=== PATIENT | female | born 1995 | race Caucasian/White ===

== ENCOUNTER 2016-09-19 22:04 | Inpatient (IN) | payer OTHER ==
[~2016-09-19] VITALS: Ht 160 cm; Wt 87.0 kg
[~2016-09-19 22:04] MED LIST: DEPO-PROVER150 MG/ML IM; LEVEMIR100 UNIT/2 SC; LEVOTHYROXINE100 MCG PO; NOVOLOG 10100 UNITS/ SC; [UNRECOGNIZED DRUG - OTHER] MC
[2016-09-19 22:22] LABS: POINT-OF-CARE METER ID UU13113778
[2016-09-19 22:36] LABS: HEMATOCRIT 43.8 % (36.0-46.0); MCH 27.1 PG (29.0-34.0); MCHC 32.9 G/DL (30.0-36.0); MCV 82.3 FL (83-99); MEAN PLAT.VOLUME 10.2 uM^3 (9.5-12.4); PLATELET COUNT 244 K/uL (156-360); RBC DIS.WIDTH-CV 12.8 % (11.8-14.6); RBC DIS.WIDTH-SD 38.2 % (39-53); RED BLOOD COUNT 5.32 M/uL (3.80-5.20)
[2016-09-19 22:40] LABS: ADD MIUA? NO; BILIRUBIN NEGATIVE; BLOOD NEGATIVE; COLOR STRAW ((YELLOW)); GLUCOSE (STRIP) >=500; KETONES 80; LEUKOCYTES NEGATIVE; NITRITE NEGATIVE; PROTEIN (STRIP) NEGATIVE; UCUL ADDED? NO; UROBILINOGEN 0.2 MG/DL (0.2-1.0)
[2016-09-19 22:45] LABS: CHLORIDE 104 mEq/L (99-109); POTASSIUM 3.9 mEq/L (3.7-5.4); SODIUM 139 mEq/L (136-147)
[2016-09-19 22:47] LABS: GLUCOSE 343 mg/dL (70-99)
[2016-09-19 22:48] LABS: ANION GAP 16 MEQ/L (2-14)
[2016-09-19 22:50] LABS: ALKALINE PHOSPHATASE 117 IU/L (3-129)
[2016-09-19 22:51] LABS: GFR ESTIMATE (CALCULATED) > 59 mL/min/
[2016-09-19 22:52] LABS: TOTAL BILIRUBIN 0.6 mg/dL (0.0-1.0); UREA NITROGEN (BUN) 14 mg/dL (9-23)
[2016-09-19 22:54] LABS: LIPASE 2 U/L (1.0-51.0)
[2016-09-20] VITALS (10 sets, daily range): BP systolic 88–120; BP diastolic 39–86
[2016-09-20 00:36] LABS: CARBON DIOXIDE (BICARBONATE) 24.5 MEQ/L (20-31)
[2016-09-20 00:49] LABS: CHLORIDE 112 mEq/L (99-109); POTASSIUM 4.1 mEq/L (3.7-5.4); SODIUM 142 mEq/L (136-147)
[2016-09-20 00:53] LABS: ANION GAP 10 MEQ/L (2-14)
[2016-09-20 00:54] LABS: GLUCOSE 142 mg/dL (70-99)
[2016-09-20 00:55] LABS: GFR ESTIMATE (CALCULATED) > 59 mL/min/
[2016-09-20 00:56] LABS: UREA NITROGEN (BUN) 11 mg/dL (9-23)
[2016-09-20 01:07] LABS: QUANTITATIVE HCG < 4.0 MIU/ML
[2016-09-20 01:32] LABS: POINT-OF-CARE METER ID UU13113702
[2016-09-20 02:29] LABS: POINT-OF-CARE METER ID UU14174217
[2016-09-20 03:13] LABS: METH RESISTANT S AUREUS PCR NEGATIVE (NEGATIVE)
[2016-09-20 03:15] LABS: PROBE CHECK PASS; SPECIMEN PROCESSING CONTROL PASS
[2016-09-20 03:38] LABS: POINT-OF-CARE METER ID UU14174217
[2016-09-20 04:57] LABS: POINT-OF-CARE METER ID UU14174217
[2016-09-20 05:03] LABS: HEMATOCRIT 35.7 % (36.0-46.0); MCH 26.7 PG (29.0-34.0); MCHC 32.5 G/DL (30.0-36.0); MCV 82.1 FL (83-99); MEAN PLAT.VOLUME 10.5 uM^3 (9.5-12.4); PLATELET COUNT 215 K/uL (156-360); RBC DIS.WIDTH-CV 12.8 % (11.8-14.6); RBC DIS.WIDTH-SD 38.5 % (39-53); RED BLOOD COUNT 4.35 M/uL (3.80-5.20); WHITE BLOOD COUNT 9.9 K/uL (4.1-10.2)
[2016-09-20 05:11] LABS: CHLORIDE 109 mEq/L (99-109); MAGNESIUM 1.6 mg/dL (1.3-2.7); POTASSIUM 4.2 mEq/L (3.7-5.4); SODIUM 139 mEq/L (136-147)
[2016-09-20 05:13] LABS: GLUCOSE 138 mg/dL (70-99)
[2016-09-20 05:14] LABS: ANION GAP 9 MEQ/L (2-14)
[2016-09-20 05:17] LABS: GFR ESTIMATE (CALCULATED) > 59 mL/min/; UREA NITROGEN (BUN) 8 mg/dL (9-23)
[2016-09-20 08:14] LABS: CARBON DIOXIDE (BICARBONATE) 27.4 MEQ/L (20-31)
[2016-09-20 11:22] LABS: POINT-OF-CARE METER ID UU13113748
[2016-09-20 21:07] LABS: POINT-OF-CARE METER ID UU14188625
[2016-09-21 00:12] VITALS: BP 99/53
[2016-09-21 07:23] VITALS: BP 111/61
[2016-09-21 07:49] LABS: POINT-OF-CARE METER ID UU13113717
[2016-09-21 10:50] LABS: ANION GAP 8 MEQ/L (2-14); CHLORIDE 107 MEQ/L (99-109); SAMPLE HEMOLYSIS CHECK 0; SAMPLE ICTERIC CHECK 0; SAMPLE LIPEMIA CHECK 0; SODIUM 141 MEQ/L (136-147)
[2016-09-21 10:56] LABS: GFR ESTIMATE (CALCULATED) > 59 mL/min/; GLUCOSE 144 mg/dL (70-99); UREA NITROGEN (BUN) 10 mg/dL (9-23)
[2016-09-21 11:40] LABS: POINT-OF-CARE METER ID UU13113717
== END 2016-09-21 12:30 | disposition home or self-care (01) | DRG 919 ==
LOC: EME 22:04 → EDOF 09-20 00:48 → 5SOUTH 09-20 00:48 → 4WEST 09-20 01:52 → 5SOUTH 09-20 16:22
PROVIDERS: Emergency Medicine; Internal Medicine
DX: T85.694A Other mechanical complication of insulin pump, initial encounter (principal); E10.10 Type 1 diabetes mellitus with ketoacidosis without coma; D72.829 Elevated white blood cell count, unspecified; E03.9 Hypothyroidism, unspecified; E86.9 Volume depletion, unspecified; Y74.2 Prosthetic and other implants, materials and accessory general hospital and personal-use devices associated with adverse incidents; Z79.4 Long term (current) use of insulin; E11.65 Type 2 diabetes mellitus with hyperglycemia; R00.0 Tachycardia, unspecified
CPT/HCPCS: 80048; 80048 91; 80053; 81003; 82010; 82803; 82948; 83605; 83690; 83735; 84100; 84702; 85027; 87641; J1650; J1815; J2405; J3475; J7030; J7050; J7120

== ENCOUNTER 2017-02-01 01:01 | Inpatient (IN) | payer OTHER ==
[2017-02-01] VITALS (16 sets, daily range): BP systolic 93–135; BP diastolic 60–86
[~2017-02-01] VITALS: Ht 160 cm; Wt 81.6 kg
[2017-02-01 01:44] LABS: HEMATOCRIT 46.2 % (36.0-46.0); MCH 26.8 PG (29.0-34.0); MCHC 32.3 G/DL (30.0-36.0); MCV 82.9 FL (83-99); MEAN PLAT.VOLUME 10.7 uM^3 (9.5-12.4); PLATELET COUNT 248 K/uL (156-360); RBC DIS.WIDTH-CV 13.1 % (11.8-14.6); RBC DIS.WIDTH-SD 39.3 % (39-53); RED BLOOD COUNT 5.57 M/uL (3.80-5.20); WHITE BLOOD COUNT 10.7 K/uL (4.1-10.2)
[2017-02-01 01:54] LABS: CHLORIDE 101 mEq/L (99-109); POTASSIUM 4.3 mEq/L (3.7-5.4); SODIUM 133 mEq/L (136-147)
[2017-02-01 01:57] LABS: MAGNESIUM 1.9 mg/dL (1.3-2.7)
[2017-02-01 01:58] LABS: ANION GAP 21 MEQ/L (2-14); TOTAL BILIRUBIN 0.5 mg/dL (0.0-1.0)
[2017-02-01 01:59] LABS: GLUCOSE 508 mg/dL (70-99)
[2017-02-01 02:00] LABS: ALKALINE PHOSPHATASE 139 IU/L (3-129); GFR ESTIMATE (CALCULATED) > 59 mL/min/
[2017-02-01 02:01] LABS: UREA NITROGEN (BUN) 19 mg/dL (9-23)
[2017-02-01 02:04] LABS: LIPASE 4 U/L (1.0-51.0)
[2017-02-01 02:04] LABS: ADD MIUA? NO; BILIRUBIN NEGATIVE; BLOOD NEGATIVE; COLOR STRAW ((YELLOW)); GLUCOSE (STRIP) >=500; KETONES 80; LEUKOCYTES NEGATIVE; NITRITE NEGATIVE; PROTEIN (STRIP) NEGATIVE; SPECIFIC GRAVITY 1.028 (1.000-1.030); UCUL ADDED? NO; UROBILINOGEN 0.2 MG/DL (0.2-1.0)
[2017-02-01 02:12] LABS: QUANTITATIVE HCG < 4.0 MIU/ML
[2017-02-01 03:00] LABS: BASOPHIL COUNT 0.1 K/uL (0-0.1); EOSINOPHIL (%) 0.2 % (0-5); IMMATURE GRANULOCYTE (%) 0.8 % (0.0-0.7); IMMATURE GRANULOCYTE COUNT 0.1 K/uL; INSTRUMENT ABS NEUTROPHIL CT 8.8 K/uL; LYMPHOCYTE COUNT 1.5 K/uL (1.0-2.8); MONOCYTE COUNT 0.3 K/uL (0-0.8); NEUTROPHIL COUNT 8.8 K/uL (1.8-6.4)
[2017-02-01 03:14] LABS: POINT-OF-CARE METER ID UU13113747
[2017-02-01 03:48] LABS: POINT-OF-CARE METER ID UU14208751
[2017-02-01 04:09] LABS: POINT-OF-CARE METER ID UU14208751
[2017-02-01 04:36] LABS: POINT-OF-CARE METER ID UU14208751
[2017-02-01 04:54] LABS: METH RESISTANT S AUREUS PCR NEGATIVE (NEGATIVE)
[2017-02-01 04:56] LABS: PROBE CHECK PASS; SPECIMEN PROCESSING CONTROL PASS
[2017-02-01 05:05] LABS: CHLORIDE 108 mEq/L (99-109); POTASSIUM 4.3 mEq/L (3.7-5.4); SODIUM 134 mEq/L (136-147)
[2017-02-01 05:08] LABS: ANION GAP 8 MEQ/L (2-14); GLUCOSE 189 mg/dL (70-99)
[2017-02-01 05:10] LABS: GFR ESTIMATE (CALCULATED) > 59 mL/min/
[2017-02-01 05:11] LABS: UREA NITROGEN (BUN) 15 mg/dL (9-23)
[2017-02-01 05:36] LABS: POINT-OF-CARE METER ID UU14208751
[2017-02-01 06:36] LABS: POINT-OF-CARE METER ID UU14208751
[2017-02-01 07:30] LABS: POINT-OF-CARE METER ID UU13113778
[2017-02-01 07:31] LABS: Estimated Average Glucose 249 mg/dL (70-123); HEMOGLOBIN A1c (GLYCOHEMOGLOB) 10.3 % HGB (Below 5.7)
[2017-02-01 07:45] LABS: POINT-OF-CARE METER ID UU14174217
[2017-02-01 08:50] LABS: POINT-OF-CARE METER ID UU14174217
[2017-02-01 09:27] LABS: POINT-OF-CARE METER ID UU13113748
[2017-02-01 09:48] LABS: CHLORIDE 104 mEq/L (99-109); SODIUM 134 mEq/L (136-147)
[2017-02-01 09:50] LABS: GLUCOSE 247 mg/dL (70-99)
[2017-02-01 09:51] LABS: ANION GAP 13 MEQ/L (2-14)
[2017-02-01 09:54] LABS: GFR ESTIMATE (CALCULATED) > 59 mL/min/
[2017-02-01 09:55] LABS: UREA NITROGEN (BUN) 11 mg/dL (9-23)
[2017-02-01 09:57] LABS: POINT-OF-CARE METER ID UU13113748
[2017-02-01 11:10] LABS: POINT-OF-CARE METER ID UU14314082
[2017-02-01 11:49] LABS: POINT-OF-CARE METER ID UU13113803
[2017-02-01 12:41] LABS: POINT-OF-CARE METER ID UU14314082
[2017-02-01 17:51] LABS: POINT-OF-CARE METER ID UU14314082
[2017-02-02 03:47] VITALS: BP 97/51
[2017-02-02 07:02] LABS: POINT-OF-CARE METER ID UU14162508
[2017-02-02 07:36] VITALS: BP 93/52
[2017-02-02 07:56] LABS: EOSINOPHIL (%) 2.4 % (0-5); EOSINOPHIL COUNT 0.2 K/uL (0-0.3); HEMATOCRIT 36.9 % (36.0-46.0); IMMATURE GRANULOCYTE (%) 0.8 % (0.0-0.7); IMMATURE GRANULOCYTE COUNT 0.1 K/uL; INSTRUMENT ABS NEUTROPHIL CT 4.6 K/uL; LYMPHOCYTE COUNT 2.6 K/uL (1.0-2.8); MCH 26.6 PG (29.0-34.0); MCHC 32.2 G/DL (30.0-36.0); MCV 82.6 FL (83-99); MEAN PLAT.VOLUME 10.2 uM^3 (9.5-12.4); MONOCYTE COUNT 0.5 K/uL (0-0.8); NEUTROPHIL (%) 57.8 % (45-76); NEUTROPHIL COUNT 4.6 K/uL (1.8-6.4); PLATELET COUNT 212 K/uL (156-360); RBC DIS.WIDTH-CV 13.5 % (11.8-14.6); RBC DIS.WIDTH-SD 40.8 % (39-53)
[2017-02-02 07:57] LABS: RED BLOOD COUNT 4.47 M/uL (3.80-5.20)
[2017-02-02 08:11] LABS: ANION GAP 8 MEQ/L (2-14); CHLORIDE 107 MEQ/L (99-109); SAMPLE HEMOLYSIS CHECK 0; SAMPLE ICTERIC CHECK 0; SAMPLE LIPEMIA CHECK 0; SODIUM 139 MEQ/L (136-147)
[2017-02-02 08:17] LABS: GFR ESTIMATE (CALCULATED) > 59 mL/min/; GLUCOSE 227 mg/dL (70-99); UREA NITROGEN (BUN) 8 mg/dL (9-23)
[2017-02-02 11:35] VITALS: BP 127/81
[2017-02-02 11:48] LABS: POINT-OF-CARE METER ID UU14162508; POINT-OF-CARE USER ID PUTDRM
[2017-02-02 12:14] LABS: ADD MIUA? NO; BILIRUBIN NEGATIVE; BLOOD NEGATIVE; COLOR YELLOW ((YELLOW)); GLUCOSE (STRIP) >=500; KETONES NEGATIVE; LEUKOCYTES NEGATIVE; NITRITE NEGATIVE; PROTEIN (STRIP) NEGATIVE; SPECIFIC GRAVITY 1.017 (1.000-1.030); UCUL ADDED? NO; UROBILINOGEN 0.2 MG/DL (0.2-1.0)
[2017-02-02 15:07] LABS: POINT-OF-CARE METER ID UU14162508
[2017-02-02] MEDS ORDERED: FAMOTIDINE20 MG PO (15:08)
[2017-02-02 15:55] VITALS: BP 121/75
[2017-02-02 16:15] LABS: POINT-OF-CARE METER ID UU14162508
[2017-02-02 16:47] LABS: POINT-OF-CARE METER ID UU14162508; POINT-OF-CARE USER ID PUTDRM
== END 2017-02-02 17:45 | disposition home or self-care (01) | DRG 919 ==
LOC: EME 01:01 → 2EAST 02:13 → EDOF 02:13 → ENRESERV 02:15 → 4WEST 03:22 → ENRESERV 19:34 → 2EAST 23:05
PROVIDERS: Emergency Medicine; Hospitalist; Internal Medicine; Specialist
DX: T85.694A Other mechanical complication of insulin pump, initial encounter (principal); E10.10 Type 1 diabetes mellitus with ketoacidosis without coma; E86.0 Dehydration; E03.9 Hypothyroidism, unspecified; K21.9 Gastro-esophageal reflux disease without esophagitis
CPT/HCPCS: 71020; 76705; 80048; 80048 91; 80053; 81003; 82010; 82803; 82947 91; 82948; 83036; 83605; 83690; 83735; 84100; 84702; 85025; 85027; 87040; 87641; 99281; 99285; J1815; J2405; J7030; J7050; J7120

== ENCOUNTER 2017-02-08 23:51 | Emergency (ER) | payer OTHER ==
[~2017-02-08] VITALS: Ht 160 cm; Wt 83.4 kg
[~2017-02-08 23:51] MED LIST changes: +FAMOTIDINE20 MG PO
[2017-02-09 00:17] LABS: ADD MIUA? NO; BILIRUBIN NEGATIVE; BLOOD NEGATIVE; COLOR STRAW ((YELLOW)); GLUCOSE (STRIP) >=500; KETONES 80; LEUKOCYTES NEGATIVE; NITRITE NEGATIVE; PROTEIN (STRIP) NEGATIVE; SPECIFIC GRAVITY 1.024 (1.000-1.030); UCUL ADDED? NO; UROBILINOGEN 0.2 MG/DL (0.2-1.0)
[2017-02-09 00:18] LABS: HEMATOCRIT 38.2 % (36.0-46.0); MCH 27.5 PG (29.0-34.0); MCV 80.9 FL (83-99); MEAN PLAT.VOLUME 10.2 uM^3 (9.5-12.4); PLATELET COUNT 266 K/uL (156-360); RBC DIS.WIDTH-CV 13.1 % (11.8-14.6); RBC DIS.WIDTH-SD 38.3 % (39-53); RED BLOOD COUNT 4.72 M/uL (3.80-5.20); WHITE BLOOD COUNT 12.3 K/uL (4.1-10.2)
[2017-02-09 00:20] LABS: CARBON DIOXIDE (BICARBONATE) 21.8 MEQ/L (20-31)
[2017-02-09 00:30] LABS: CHLORIDE 101 mEq/L (99-109); SODIUM 133 mEq/L (136-147)
[2017-02-09 00:31] LABS: MAGNESIUM 1.7 mg/dL (1.3-2.7)
[2017-02-09 00:32] LABS: GLUCOSE 300 mg/dL (70-99)
[2017-02-09 00:34] LABS: ANION GAP 14 MEQ/L (2-14)
[2017-02-09 00:36] LABS: GFR ESTIMATE (CALCULATED) > 59 mL/min/
[2017-02-09 00:37] LABS: UREA NITROGEN (BUN) 17 mg/dL (9-23)
[2017-02-09 02:17] LABS: CARBON DIOXIDE (BICARBONATE) 24.3 MEQ/L (20-31)
[2017-02-09 02:59] VITALS: BP 128/85
== END 2017-02-09 03:01 | disposition home or self-care (01) ==
LOC: EME 23:51
PROVIDERS: Emergency Medicine
DX: E10.65 Type 1 diabetes mellitus with hyperglycemia (principal); E86.0 Dehydration; Z79.4 Long term (current) use of insulin; Z96.41 Presence of insulin pump (external) (internal); E03.9 Hypothyroidism, unspecified
CPT/HCPCS: 80048; 81003; 82803; 83605; 83735; 84100; 85027; 99281; 99285; J7030